=== PATIENT | male | born 1970 | race Two or more races ===

== ENCOUNTER 2018-12-29 11:48 | Outpatient (CLI) | payer OTHER ==
[~2018-12-29 11:48] MED LIST: CIPRO500 MG; PROZAC10 MG; TRAMADOL
[2019-01-03] MEDS ORDERED: ZOCOR20 MG PO (10:02)
[2019-01-03] MEDS ORDERED: PRILOSEC OTC20 MG PO (10:03)
[2019-01-03] MEDS ORDERED: MIRTAZAPINE30 M1 PO (10:04)
[2019-01-03] MEDS ORDERED: ATIVAN0.5 M1 PO (10:04)
[2019-01-03] MEDS ORDERED: POTASSIUM CITR10 MEQ PO (11:43)
== END 2018-12-29 11:55 | disposition home or self-care (01) ==
LOC: RAD 501 11:48
DX: I11.9 Hypertensive heart disease without heart failure (principal); N20.0 Calculus of kidney

== ENCOUNTER 2019-01-02 13:04 | Outpatient (CLI) | payer OTHER ==
[2019-01-03] MEDS ORDERED: ZOCOR20 MG PO (10:02)
[2019-01-03] MEDS ORDERED: PRILOSEC OTC20 MG PO (10:03)
[2019-01-03] MEDS ORDERED: MIRTAZAPINE30 M1 PO (10:04)
[2019-01-03] MEDS ORDERED: ATIVAN0.5 M1 PO (10:04)
[2019-01-03] MEDS ORDERED: POTASSIUM CITR10 MEQ PO (11:43)
== END 2019-01-02 13:47 | disposition home or self-care (01) ==
LOC: LAB 13:04
DX: E11.69 Type 2 diabetes mellitus with other specified complication (principal)

== ENCOUNTER 2019-01-04 11:16 | Inpatient (IN) | payer OTHER ==
[~2019-01-04 11:16] MED LIST changes: +ATIVAN0.5 M1 PO; +MIRTAZAPINE30 M1 PO; +POTASSIUM CITR10 MEQ PO; +PRILOSEC OTC20 MG PO; +ZOCOR20 MG PO
== END 2019-01-06 12:22 | disposition home or self-care (01) | DRG 661 ==
LOC: CIR.AMB 11:16 → SURH 19:35
PROVIDERS: ADMIT Urology
PROC: 0TJB8ZZ Inspection of Bladder, Via Natural or Artificial Opening Endoscopic (ICD-10-PCS; 2019-01-04)
PROC: BT1DZZZ Fluoroscopy of Right Kidney, Ureter and Bladder (ICD-10-PCS; 2019-01-04)
PROC: 0TC03ZZ Extirpation of Matter from Right Kidney, Percutaneous Approach (ICD-10-PCS; principal; 2019-01-04 14:00)
DX: N20.0 Calculus of kidney (principal)

== ENCOUNTER 2019-01-17 13:20 | Outpatient (CLI) | payer OTHER | END 2019-01-17 13:29 | disposition home or self-care (01) | LOC: RAD 501 13:20 | DX: N20.0 Calculus of kidney (principal) ==

== ENCOUNTER 2024-05-03 16:27 | Emergency (ER) | payer OTHER ==
[~2024-05-03] VITALS: Ht 175.3 cm; Wt 75.3 kg
[2024-05-03] MEDS ORDERED: KETO10TA2 PO (17:01)
[2024-05-03] MEDS ORDERED: TAMS0.4C PO (20:23)
== END 2024-05-03 20:27 | disposition home or self-care (01) ==
LOC: ER 16:28
DX: M54.9 Dorsalgia, unspecified (principal); Z87.442 Personal history of urinary calculi; Z91.041 Radiographic dye allergy status